=== PATIENT | male | born 1975 | race Hispanic/Latino ===

== ENCOUNTER 2022-12-27 13:41 | Outpatient (CLI) | payer OTHER | END 2022-12-27 13:42 | disposition home or self-care (01) | LOC: CSHULT 13:41 | PROVIDERS: ATTEND Nurse Practitioner Family | DX: R19.03 Right lower quadrant abdominal swelling, mass and lump (principal); N50.3 Cyst of epididymis; K40.90 Unilateral inguinal hernia, without obstruction or gangrene, not specified as recurrent | CPT/HCPCS: 76870 ==